=== PATIENT | female | born 1985 | race Two or more races ===

== ENCOUNTER 2016-11-23 19:27 | Emergency (ER) | payer MEDICAID ==
[~2016-11-23] VITALS: Ht 157.5 cm; Wt 86.2 kg
[2016-11-23 20:45] VITALS: BP 131/89
--- NOTE | 2016-11-24 00:45 | Emergency Room Report ---
History of Present Illness General Chief Complaint: Dizziness Source: Patient Present Illness HPI Patient is a 30-year-old female presented after increased dizziness. The patient reported having feeling of palpitations. She reported having had no change with movement. She states that she felt like her heart is beating fast. She denied any fever. She had not been vomiting. She denied and diarrhea. The patient denies stimulant use. She denies being . Allergies: Uncoded Allergies: SULFA (Allergy, Unknown, 11/23/16) Patient History Past Medical History: see triage record Last Menstrual Period: 11/05/16 Now: No Reviewed Nursing Documentation: PMH: Agreed, PSxH: Agreed Nursing Documentation-PMH Past Medical History: No Stated History Review of Systems All Other Systems: negative except mentioned in HPI Physical Exam Vital Signs Date Time Temp Pulse Resp B/P Pulse Ox O2 Delivery O2 Flow Rate FiO2 11/23/16 19:47 98.6 70 19 143/91 99 Room Air Sp02 EP Interpretation: reviewed, normal General Appearance: normal inspection, well appearing, no apparent distress, alert, GCS 15 Head: atraumatic ENT: normal ENT inspection, hearing grossly normal, normal voice Neck: normal inspection, full range of motion, supple, no bony tend Respiratory: normal inspection, lungs clear, normal breath sounds, no respiratory distress, no retraction, no wheezing Cardiovascular #1: regular rate, rhythm, no edema Gastrointestinal: normal inspection, normal bowel sounds, non tender, soft, no guarding, no hernia Genitourinary: no CVA tenderness Musculoskeletal: normal inspection, back normal, normal range of motion Neurologic: normal inspection, alert, oriented x3, responsive, 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 Differential diagnoses included was not limited to alcohol withdrawal, anemia, arrhythmia, stimulant overdose among others. Patient's benign exam and does not appear to require any further imaging or laboratory testing at this time. EKG appeared unremarkable. The patient was placed on ornament stapler was noted to have normal sinus rhythm without PVCs or ectopy.The patient is advised to follow up with primary care doctor in 1-2 days. Patient is advised to return if any worsening condition or if any changes in status that are concerning. EKG Diagnostic Results Rate: normal Rhythm: NSR - 73 ST Segments: other - incomplete rbbb Chest X-Ray Diagnostic Results EP Interpretation: Yes Findings: no consolidation, no effusion, no pneumothorax, no acute cardiopulmonary disease Number of Views: 1 Last Vital Signs Date Time Temp Pulse Resp B/P Pulse Ox O2 Delivery O2 Flow Rate FiO2 11/23/16 20:45 72 19 131/89 99 Room Air 11/23/16 20:43 98.6 Status: improved Disposition: HOME, SELF-CARE Condition: Stable Patient Instructions: Palpitations [place] Nov 24, 2016 00:45
--- NOTE | 2016-11-25 15:12 | Cardiology Report ---
APPROVED REPORT EKG Measurement Heart [id number] Normal sinus rhythm with sinus arrhythmia Normal ECG
--- NOTE | 2016-11-29 10:30 | Diagnostic Imaging Report ---
Indication: Chest Pain Comparison: None A single view chest radiograph was obtained. Findings: Cardiomediastinal appearance is within normal limits for age. Pulmonary vascularity is appropriate. The diaphragmatic contour is smooth and costophrenic angles are sharp. No pleural effusions are identified. The bones are unremarkable. Impression: No acute findings
== END 2016-11-23 20:48 | disposition home or self-care (01) ==
LOC: EMR 20:15
DX: R00.2 Palpitations (principal); Z88.2 Allergy status to sulfonamides
CPT/HCPCS: 71010; 93005; 99283